=== PATIENT | male | born 1975 ===

== ENCOUNTER → 2025-01-06 | Outpatient (BNVA) | payer MEDICAID, SELFPAY | END | disposition home or self-care (01) | PROVIDERS: PCP Physician Assistant; Referring Provider Physician Assistant; Visit Provider Urology | DX: N40.1 Benign prostatic hyperplasia with lower urinary tract symptoms (principal); N13.8 Other obstructive and reflux uropathy; Z87.440 Personal history of urinary (tract) infections; I10 Essential (primary) hypertension; E66.01 Morbid (severe) obesity due to excess calories; Z68.41 Body mass index [BMI] 40.0-44.9, adult; E78.00 Pure hypercholesterolemia, unspecified | CPT/HCPCS: 81003; 99212; G0463 ==